=== PATIENT | female | born 1980 | race Caucasian/White ===

== ENCOUNTER 2023-01-18 01:57 | Emergency (ER) | payer OTHER, BC, MEDICAID ==
[~2023-01-18] VITALS: Ht 170.2 cm; Wt 72.6 kg
[2023-01-18 01:57] VITALS: BP 131/90; PULSE 90; RESP 16; TEMP 98.2; O2SAT 97
[2023-01-18 02:24] VITALS: BP 131/90; PULSE 90; RESP 16; TEMP 98.2; O2SAT 97
== END 2023-01-18 02:24 ==
LOC: MED 01:57
DX: Z02.89 Encounter for other administrative examinations (principal); V49.88XA Car occupant (driver) (passenger) injured in other specified transport accidents, initial encounter; Y93.89 Activity, other specified; Y92.89 Other specified places as the place of occurrence of the external cause; Y99.8 Other external cause status
CPT/HCPCS: 99283